=== PATIENT | female | born 1945 | race Caucasian/White ===

== ENCOUNTER → 2019-12-16 | Outpatient (CLI) | payer MEDICARE ==
--- NOTE | 2019-12-16 17:20 | XR ---
EXAMINATION TYPE: XR knee 4V RT DATE OF EXAM: 12/16/2019 COMPARISON: NONE HISTORY: 74-year-old female with right knee pain TECHNIQUE: 4 views FINDINGS: Moderate degenerative spurring at the patella femoral compartment and mild within the medial compartm ent. A small knee joint effusion. Possible fragmented spur along the upper pole of the patella. Mild anterior soft tissue swelling. Otherwise, no acute fracture, subluxation, dislocation is seen. There is lateral patellar translation and lateral patellofemoral compartment joint space narrowing. IMPRESSION: 1. At least moderate patellofemoral compartmental osteoarthrosis and mild within the medial compartme nt. 2. Possible fragmented/fractured spur from the upper pole of the patella. Correlate for any focal serjio n here. 3. Small knee joint effusion and anterior soft tissue swelling .
== END | disposition home or self-care (01) ==
LOC: RADXRMAIN 11:51
PROVIDERS: ATTEND Physician Assistant
DX: M17.11 Unilateral primary osteoarthritis, right knee (principal)

== ENCOUNTER → 2021-09-16 | Outpatient (CLI) | payer MEDICARE ==
--- NOTE | 2021-09-16 16:09 | US ---
EXAMINATION TYPE: US kidneys/renal and bladder DATE OF EXAM: 09/16/2021 COMPARISON: NONE CLINICAL HISTORY: 76-year-old female R42 lightheadedness, N18.9 CKD. TECHNIQUE: Multiple sonographic images of the kidneys and bladder are obtained. FINDINGS: EXAM MEASUREMENTS: Right Kidney: 10.6 x 5.0 x 4.0 cm Left Kidney: 11.6 x 5.7 x 4.7 cm Some minimal perinephric crescentic edema is noted. This could reflect senescent change or chronic ki dney disease. No hydronephrosis on either side. No shadowing calculus or discrete mass is seen. Bladder: Appears anechoic. Bilateral Jets seen: Yes IMPRESSION: No hydronephrosis.
== END | disposition home or self-care (01) ==
LOC: RADUSWWP 14:48
PROVIDERS: ATTEND Pediatrics
DX: N18.9 Chronic kidney disease, unspecified (principal); R42 Dizziness and giddiness
CPT/HCPCS: 76770

== ENCOUNTER → 2021-09-21 | Outpatient (CLI) | payer MEDICARE ==
--- NOTE | 2021-10-26 12:22 | EM ---
7 Day Event Monitor Note: Patient wore an event monitor for 7 days from 09/21/2021 until 09/25/2021. Findings: Patient's baseline heart rate was normal sinus rhythm. There were no significant atrial fibrillation, atrial flutter, or ventricular tachycardia episodes. There were no significant pauses greater than 2 seconds. There were a total of 25 automatically captured events which corresponded with sinus tachycardia up to 131 bpm and brief PACs. 3 patient activated events which corresponded with normal sinus rhythm. Conclusions: 7 day event monitor showing only sinus rhythm and sinus tachycardia with rare asymptomatic PACs. MTDD
== END | disposition home or self-care (01) ==
LOC: RADECHMAIN 12:03
PROVIDERS: ATTEND Pediatrics
DX: R42 Dizziness and giddiness (principal)
CPT/HCPCS: 93270

== ENCOUNTER → 2021-10-05 | Outpatient (CLI) | payer MEDICARE ==
--- NOTE | 2021-10-05 12:55 | CA ---
Transthoracic Echo Report Name: Megan Lopez Age: 76 Gender: F : 1945 Exam Date: 10/05/2021 11:20 Exam Location: [facility] Ht (in): 65 Wt (lb): 205 Ordering Physician: Fredy Jacobsen MD Attending/Referring Phys: Margoth Montero PAC Nanny Caregiver Tracee Valadez RDCS Procedure CPT: Indications: R42 lightheadedness Cardiac Hx: Technical Quality: Fair Contrast 1: Total Dose (mL): Contrast 2: Total Dose (mL): MEASUREMENTS (Male / Female) Normal Values 2D ECHO LV Diastolic Diameter PLAX 1.7 cm 4.2 - 5.9 / 3.9 - 5.3 cm LV Systolic Diameter PLAX 1.1 cm IVS Diastolic Thickness 1.4 cm 0.6 - 1.0 / 0.6 - 0.9 cm LVPW Diastolic Thickness 1.1 cm 0.6 - 1.0 / 0.6 - 0.9 cm LV Relative Wall Thickness 1.5 M-MODE Aortic Root Diameter MM 3.8 cm LA Systolic Diameter MM 2.3 cm LA Ao Ratio MM 0.6 AV Cusp Separation MM 1.8 cm DOPPLER AV Peak Velocity 156.9 cm/s AV Peak Gradient 9.8 mmHg LVOT Peak Velocity 115.9 cm/s LVOT Peak Gradient 5.4 mmHg MV Area PHT 5.8 cm??? MR Peak Velocity 154.3 cm/s MR Peak Gradient 9.5 mmHg Mitral E Point Velocity 58.0 cm/s Mitral A Point Velocity 121.9 cm/s Mitral E to A Ratio 0.5 MV Deceleration Time 130.4 ms TR Peak Velocity 209.5 cm/s TR Peak Gradient 17.6 mmHg Right Ventricular Systolic Press 20.8 mmHg FINDINGS Left Ventricle Moderately increased septal wall thickness. Mildly increased posterior wall thickness. Left ventricular ejection fraction is estimated at 55-60 %. Right Ventricle The right ventricle is normal in size and function. Right Atrium The right atrium is normal in size. Left Atrium The left atrium is normal in size. Mitral Valve Structurally normal mitral valve without significant stenosis or prolapse. There is trace mitral regurgitation. Aortic Valve Structurally normal aortic valve without significant sclerosis or stenosis. There is no aortic regurgitation. Tricuspid Valve Structurally normal tricuspid valve without significant stenosis. Pulmonary artery systolic pressure is normal. Trace tricuspid regurgitation. Pulmonic Valve Structurally normal pulmonic valve without significant stenosis. There is no pulmonic regurgitation. Pericardium Normal pericardium without effusion. Aorta Normal aortic root dimension. CONCLUSIONS Technically difficult study for interpretation Normal left ventricular dimension and systolic function Previewed by: Dr. Haris Huynh MD (Electronically Signed) Final Date: 05 October 2021 12:54
== END | disposition home or self-care (01) ==
LOC: RADECHMAIN 11:17
PROVIDERS: ATTEND Pediatrics
DX: R42 Dizziness and giddiness (principal)
CPT/HCPCS: 93306

== ENCOUNTER → 2021-10-26 | Outpatient (CLI) | payer MEDICARE ==
--- NOTE | 2021-10-28 21:01 | US ---
EXAMINATION TYPE: US carotid duplex BILAT DATE OF EXAM: 10/27/2021 COMPARISON: NONE CLINICAL HISTORY: R42 DIZZINESS LIGHTHEADEDNESS. Dizziness, lightheadedness. Prior smoker. Hx hyperte nsion. TECHNIQUE: Carotid duplex ultrasound examination. Indirect Doppler criteria was utilized. FINDINGS: EXAM MEASUREMENTS: RIGHT: Peak Systolic Velocity (PSV) cm/sec ----- Right CCA: 124 ----- Right ICA: 92.9 ----- Right ECA: 105 ICA/CCA ratio: 0.75 RIGHT: End Diastole cm/sec ----- Right CCA: 21.0 ----- Right ICA: 35.7 ----- Right ECA: 15.4 LEFT: Peak Systolic Velocity (PSV) cm/sec ----- Left CCA: 118 ----- Left ICA: 103 ----- Left ECA: 114 ICA/CCA ratio: 0.87 LEFT: End Diastole cm/sec ----- Left CCA: 28.2 ----- Left ICA: 41.6 ----- Left ECA: 11.2 VERTEBRALS (direction of flow): Right Vertebral: Antegrade Left Vertebral: Antegrade Rhythm: Normal SUPERCALENDER OPERATOR NOTES: Plaque seen within bilateral bulbs. Elevated velocity within left prox CCA. Some p laquing is hard plaquing with calcification and posterior shadowing. IMPRESSION: 1. Bilateral atheromatous plaquing within the carotid bifurcations. Significant flow-limiting stenosi s is not identified. Criteria for Assigning % of Stenosis / Diameter reduction (Estimation based on the indirect measurements of the internal carotid artery velocities (ICA PSV). 1. Normal (no stenosis)=ICA PSV < 125 cm/s: ratio < 2.0: ICA EDV<40 cm/s. 2. Less than 50% stenosis=ICA PSV < 125 cm/s: ratio < 2.0: ICA EDV<40 cm/s. 3. 50 to 69% stenosis=ICA PSV of 125 to 230 cm/s: ration 2.0 ? 4.0: ICA EDV 40-100 cm/s. 4. Greater than 70% stenosis to near occlusion= ICA PSV > 230 cm/s: ratio > 4.0: ICA EDV > 100 cm/s. 5. Near occlusion= ICA PSV velocities may be low or undetectable: variable ratio and ICA EDV. 6. Total occlusion=unable to detect flow.
== END | disposition home or self-care (01) ==
LOC: RADUSWWP 21:30
PROVIDERS: ATTEND Pediatrics
DX: R42 Dizziness and giddiness (principal); N18.9 Chronic kidney disease, unspecified
CPT/HCPCS: 93880

== ENCOUNTER → 2022-01-12 | Outpatient (CLI) | payer MEDICARE ==
--- NOTE | 2022-01-12 14:04 | XR ---
EXAMINATION TYPE: XR chest 2V DATE OF EXAM: 01/12/2022 COMPARISON: NONE HISTORY: Shortness of breath TECHNIQUE: Frontal and lateral views of the chest are obtained. FINDINGS: Scattered senescent parenchymal changes noted. Hyperinflation compatible with COPD. No evidence for infiltrate. No evidence for atelectasis. Heart size is stable. Mediastinal structures are stable and grossly unremarkable. No evidence for hilar prominence. Degenerative changes dorsal spine. IMPRESSION: 1. No evidence for acute pulmonary disease.
== END | disposition home or self-care (01) ==
LOC: RADXRMAIN 13:35
PROVIDERS: ATTEND Pediatrics
DX: R06.02 Shortness of breath (principal)
CPT/HCPCS: 71046

== ENCOUNTER → 2022-09-06 | Outpatient (CLI) | payer MEDICARE ==
[2022-09-06 20:29] LABS: Basophils # (A) 0.07 X 10*3/uL (0.00-0.10); Eosinophils # (A) 0.13 X 10*3/uL (0.04-0.35); Eosinophils % (A) 1.8 %; HCT 44.3 % (37.2-46.3); HGB 13.9 d/dL (12.0-15.0); Lymphocytes # (A) 1.03 X 10*3/uL (0.90-5.00); Lymphocytes % (A) 14.2 %; MCH 28.6 pg (27.0-32.0); MCHC 31.4 d/dL (32.0-37.0); MCV 91.2 FL (80.0-97.0); Mean Platelet Volume 11.3 FL (9.5-12.2); Monocytes # (A) 0.57 X 10*3/uL (0.20-1.00); Monocytes % (A) 7.9 %; NRBC Per 100 WBC 0 X 10*3/uL (0.00-0.01); Neutrophils # (A) 5.43 X 10*3/uL (1.80-7.70); Neutrophils % (A) 74.7 %; Platelet Count 204 X 10*3/uL (140-440); RBC 4.86 X 10*6/uL (4.10-5.20); RDW 14.6 % (11.5-14.5); WBC 7.26 X 10*3/uL (4.50-10.00)
[2022-09-06 20:57] LABS: % Iron Saturation 15.92 (12.00-45.00); ALT 11 U/L (8-44); AST 16 U/L (13-35); Albumin 4.3 d/dL (3.8-4.9); Albumin/Globulin Ratio 1.87 Ratio (1.60-3.17); Alkaline Phosphatase 98 U/L (41-126); BUN/Creat Ratio 24.83 Ratio (12.00-20.00); Blood Urea Nitrogen 29.8 mg/dL (9.0-27.0); Calcium 9.8 mg/dL (8.7-10.3); Carbon Dioxide 21.7 mmol/L (21.6-31.8); Chloride 108 mmol/L (96-109); Globulin 2.3 d/dL (1.6-3.3); Glucose 110 mg/dL (70-110); Iron 50 UG/DL (50-170); Magnesium 1.7 mg/dL (1.5-2.4); Phosphorus 3.2 mg/dL (2.4-5.1); Potassium 4.6 mmol/L (3.5-5.5); Sodium 143 mmol/L (135-145); Total Bilirubin 0.3 mg/dL (0.3-1.2); Total Iron Binding Capacity 314 UG/DL (228-460); Total Protein 6.6 d/dL (6.2-8.2); Uric Acid 6.6 mg/dL (2.9-7.7)
== END | disposition home or self-care (01) ==
LOC: LABWHC1 13:36
PROVIDERS: ATTEND Nurse Practitioner Family
DX: N25.81 Secondary hyperparathyroidism of renal origin (principal); N18.32 Chronic kidney disease, stage 3b; D63.1 Anemia in chronic kidney disease; N39.0 Urinary tract infection, site not specified; E55.9 Vitamin D deficiency, unspecified; M10.9 Gout, unspecified; R80.9 Proteinuria, unspecified
CPT/HCPCS: 36415; 80053; 82043; 82306; 82570; 82728; 83540; 83550; 83735; 83970; 84100; 84550; 85025

== ENCOUNTER → 2023-05-05 | Outpatient (CLI) | payer MEDICARE ==
--- NOTE | 2023-05-06 21:07 | MR ---
EXAMINATION TYPE: MR brain wo con DATE OF EXAM: 05/05/2023 7:53 PM CLINICAL INDICATION:Female, 77 years old with history of R41.3 MEM LOSS R42 DIZZY R51.9 HEADACHE; PHH , Headaches daily, memory loss, lightheaded. COMPARISON: None. TECHNIQUE: Multi planar, multi sequence imaging was performed through the brain including: T1, T2, In version recovery, Diffusion weighted imaging, and gradient echo imaging. No gadolinium was given. FINDINGS: Intermediate T1/T2 signal lesion near the foramen of Thomas measuring 8 mm. The [place]-white junctions, ventricular system, basal cisterns appear unremarkable. Scattered foci of high T2 signal intensity are seen within the periventricular white matter. Midline structures show n o abnormality. Diffusion-weighted imaging shows no evidence of restricted diffusion. The susceptibili ty weighted images do not reveal any evidence for micro-hemorrhage. The bone marrow signal is within normal limits. Paranasal sinuses and mastoid air cells: No significant paranasal sinus disease. Visualized orbits: Bilateral aphakia IMPRESSION: 1. No evidence of intracranial mass or acute/subacute infarct. 2. 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 No evidence for obstructive hydrocephalus. 3. Nonspecific white matter changes, likely secondary to small vessel ischemic disease.
== END | disposition home or self-care (01) ==
LOC: RADMRIMAIN 19:04
PROVIDERS: ATTEND Pediatrics
DX: G93.0 Cerebral cysts (principal); R90.82 White matter disease, unspecified; I67.82 Cerebral ischemia; R41.3 Other amnesia; R42 Dizziness and giddiness; R51.9 Headache, unspecified
CPT/HCPCS: 70551

== ENCOUNTER → 2023-07-07 | Outpatient (CLI) | payer MEDICARE ==
--- NOTE | 2023-07-07 14:49 | XR ---
EXAMINATION TYPE: XR ankle complete 3 views RT, XR foot complete 3 views RT, XR knee complete 3 views RT DATE OF EXAM: 07/07/2023 COMPARISON: NONE HISTORY: 77-year-old female M25.571 PAIN RT ANKLE AND JOINTS OF RT FOOT FINDINGS: Right knee: Moderate degenerative change in the medial compartment and moderate to severe in patellofemoral pily rtment. There is a moderate knee joint effusion noted. Atherosclerotic calcifications popliteal arter y. No acute fracture, subluxation, dislocation is seen. Right ankle: Ossific density below the medial malleolus measuring 9 mm suggesting sequela of old injury. There is some bony spurring along the cortical margin of the distal tibial metaphysis. Some eccentric joint sp danny narrowing in the medial aspect of the tibiotalar joint. Talar dome intact. Preserved tibia-fibula overlap. Subtalar joint align. Moderate-sized plantar heel spur. Right foot: End-stage degenerative change first MTP joint with [id number] articulation, subchondral sclerosis, and bulky marginal spurring. Possible type II printer maintainer navicular which can become symptomatic in some patients. Irregularity at the tip of the tuberosity of the fifth metatarsal, best seen on the obliqu e view. IMPRESSION: 1. Right knee: Tricompartment osteoarthrosis, moderate in the medial compartment and moderate to pierre re in the patellofemoral compartment. There is a moderate knee joint effusion which may be reactive. If concern for internal derangement, MRI can be performed. 2. Right ankle: Sequela of old injury at the medial malleolus/deltoid ligament insertion. Bony spurri ng medially and is seen in the setting of posterior tibial tendinopathy. Moderate sized plantar heel spur. 3. Right foot: Hallux rigidus. Type II accessory navicular which can become symptomatic in some patie nts. Clinically correlate. Some irregularity at the base of the fifth metatarsal. Age indeterminate i njury here. Correlate for any point tenderness to exclude a subtle nondisplaced avulsion fracture.
--- NOTE | 2023-07-07 15:20 | XR ---
EXAMINATION TYPE: XR lumbosacral spine 5V, XR Hip Bilateral 2 views Complete DATE OF EXAM: 07/07/2023 Comparison: None Clinical History: 77-year-old female M25.571 PAIN RT ANKLE AND JOINTS OF RT FOOT. M25.559 HIP PAIN Findings: Lumbar spine: 5 lumbar type vertebral bodies. Advanced hypertrophic facet arthropathy throughout the lumbar spine w ith Baastrup's disease. Alignment is maintained. Mild multilevel degenerative disc disease. [facility] in t he lower thoracic spine. Vertebral body heights are preserved. Bilateral hips: There is mild degenerative spurring on both sides. Mild early axial joint space narrowing in both hi ps. Bony spurring at the greater trochanter suggesting chronic gluteal insertional tendinopathy. No a cute fracture, subluxation, dislocation seen. Impression: Lumbar spine: 1. Advanced hypertrophic facet arthropathy throughout. Mild multilevel degenerative disc disease. 2. No vertebral compression collapse or malalignment. 3. DISH in the lower thoracic spine. Baastrup's disease throughout the lumbar spine. Bilateral hips: 4. Mild bilateral hip OA. 5. No acute osseous abnormality seen.
== END | disposition home or self-care (01) ==
LOC: RADXRMAIN 13:43
PROVIDERS: ATTEND Physician Assistant
DX: M47.817 Spondylosis without myelopathy or radiculopathy, lumbosacral region (principal); M17.11 Unilateral primary osteoarthritis, right knee; M51.36 Other intervertebral disc degeneration, lumbar region; M20.21 Hallux rigidus, right foot; M48.26 Kissing spine, lumbar region; M16.0 Bilateral primary osteoarthritis of hip
CPT/HCPCS: 72110; 73521

== ENCOUNTER → 2024-01-29 | Outpatient (CLI) | payer MEDICARE, OTHER ==
--- NOTE | 2024-01-29 13:41 | US ---
EXAMINATION TYPE: US kidneys/renal and bladder DATE OF EXAM: 01/29/2024 COMPARISON: NONE CLINICAL INDICATION: Female, 78 years old with history of N18.32 CHRONIC KIDNEY DISEASE, STAGE 3B; CK D, no symptoms TECHNIQUE: Grayscale imaging of the bilateral kidneys and urinary bladder: FINDINGS: EXAM MEASUREMENTS: Right Kidney: 9.7 x 3.5 x 4.0 cm Left Kidney: 9.6 x 3.9 x 4.3 cm Right Kidney: No hydronephrosis or masses seen Left Kidney: No hydronephrosis or masses seen Bladder: wnl There is no evidence for hydronephrosis at this point in time. No nephrolithiasis is seen. No maisha s are identified. The urinary bladder is anechoic. IMPRESSION: No evidence for obstructive uropathy or renal calculus. [facility] Deana Steel, , 01/29/2024 1:38 PM
== END | disposition home or self-care (01) ==
LOC: RADUSWWP 13:07
PROVIDERS: ATTEND Internal Medicine
DX: N18.32 Chronic kidney disease, stage 3b (principal)
CPT/HCPCS: 76770